=== PATIENT | female | born 1955 | race Two or more races ===

== ENCOUNTER → 2022-10-02 | Outpatient (CLI) | payer MEDICARE | LOC: M WHC 14:20 | DX: Z12.31 Encounter for screening mammogram for malignant neoplasm of breast (principal); Z13.820 Encounter for screening for osteoporosis; M81.0 Age-related osteoporosis without current pathological fracture ==

== ENCOUNTER → 2022-10-17 | Outpatient (CLI) | payer MEDICARE | LOC: M WHC 10:31 | DX: R92.2 Inconclusive mammogram (principal) | CPT/HCPCS: 77065; G0279 ==

== ENCOUNTER → 2023-10-21 | Outpatient (CLI) | payer MEDICARE | LOC: M PLAIMG 14:39 | PROVIDERS: ATTEND Nurse Practitioner Family | DX: M51.36 Other intervertebral disc degeneration, lumbar region (principal) ==

== ENCOUNTER → 2023-10-21 | Outpatient (CLI) | payer MEDICARE | LOC: M WHC 14:36 | PROVIDERS: ATTEND Nurse Practitioner Family | DX: Z12.31 Encounter for screening mammogram for malignant neoplasm of breast (principal) ==